=== PATIENT | female | born 1990 | race Caucasian/White ===

== ENCOUNTER 2018-11-10 13:31 | Emergency (ER) | payer OTHER, MEDICAID, SELFPAY ==
[2018-11-10 13:37] VITALS: BP 131/85; PULSE 66; RESP 20; TEMP 36.6; O2SAT 99
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
--- NOTE | 2018-11-10 15:14 | PC.NURSE ---
CMS intact after collar placed. CT done. Stable pt
[2018-11-10] MEDS: KETOROLAC 60 MG/2 ML VIAL IM (15:38)
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
[2018-11-10 16:12] VITALS: BP 116/74; PULSE 57; RESP 20; O2SAT 96
== END 2018-11-10 16:13 | disposition home or self-care (01) ==
PROVIDERS: Emergency Provider Nurse Practitioner Family
DX: M54.2 Cervicalgia (principal); S13.4XXA Sprain of ligaments of cervical spine, initial encounter; V89.2XXA Person injured in unspecified motor-vehicle accident, traffic, initial encounter
CPT/HCPCS: 72125; 81003; 81025; 99282; 99284; J1885

== ENCOUNTER → 2019-09-29 16:00 | Outpatient (CLI) | payer OTHER, MEDICAID, SELFPAY ==
--- NOTE | 2019-09-29 16:03 | DI.RAD.S_ITS ---
PROCEDURE: XR LUMBAR SPINE 2-3V INDICATIONS: Low back pain TECHNIQUE: 3 views of the lumbar spine were acquired. COMPARISON: None. FINDINGS: Bones: No fracture or focal osseous destruction. Multilevel degenerative endplate sclerosis and spurring. Diffuse facet arthropathy. Diffuse mild lumbar disc space narrowing Soft tissues: Overlying bowel gas pattern is normal. No suspicious soft tissue calcifications. IMPRESSION: Mild diffuse lumbar spondylosis and facet arthropathy Dictated by: Gary Vail M.D. on 09/29/2019 at 16:58 Approved by: Gary Vail M.D. on 09/29/2019 at 16:59
== END ==
PROVIDERS: PCP Student in an Organized Health Care Education/Training Program; Referring Provider Student in an Organized Health Care Education/Training Program; Visit Provider Student in an Organized Health Care Education/Training Program
DX: M54.5 Low back pain (principal); M47.816 Spondylosis without myelopathy or radiculopathy, lumbar region
CPT/HCPCS: 72100

== ENCOUNTER 2019-10-08 16:30 | Emergency (ER) | payer OTHER, MEDICAID, SELFPAY ==
[2019-10-08 16:39] VITALS: BP 125/68; PULSE 66; RESP 18; TEMP 36.7; O2SAT 100; BMI 32.2
[2019-10-08 17:55] LABS: Prothrombin Time 11.2 SECONDS (10.1-12.7)
[2019-10-08 17:58] LABS: PTT Partial Thromboplastin Tim 30 SECONDS (26.4-36.2)
[2019-10-08 18:00] LABS: Alanine Aminotransferase 22 IU/L (<35); Albumin 4.6 g/dL (3.5-5.0); Albumin Globulin Ratio 1.3 (1.0-2.8); Alkaline Phosphatase 114 U/L (38-126); Aspartate Aminotransferase 31 IU/L (14-36); Bilirubin Total 0.4 mg/dL (0.2-1.3); Blood Urea Nitrogen 9 mg/dL (7-17); Calcium 9.8 mg/dL (8.4-10.2); Carbon Dioxide 23 mmol/L (22-32); Chloride 105 mmol/L (98-107); Estimated Glomerular Filt Rate > 60.0 mL/min (>60); Globulin 3.6 g/dL (1.7-4.1); Glucose 88 mg/dL (70-100); HEMOLYSIS < 15 (0-50); Lipase 179 U/L (23-300); Potassium 4.1 mmol/L (3.4-5.1); Sodium 139 mmol/L (137-145); Total Protein 8.2 g/dL (6.3-8.2)
[2019-10-08 18:02] LABS: Add Manual Diff / Slide Review NO; Basophils Absolute Auto 0 /uL (0-100); Basophils Percent Auto 0.2 % (0-2); Eosinophils Absolute Auto 100 /uL (0-450); Eosinophils Percent Auto 0.9 % (2-4); Hematocrit 40.6 % (36-46); Hemoglobin 13.9 g/dL (12.0-16.0); Lymphocytes Absolute Auto 2800 /uL (1100-4500); Lymphocytes Percent Auto 31.3 % (25-40); Mean Corpuscular HGB Conc 34.2 % (30-36); Mean Corpuscular Hemoglobin 30.4 PG (26-34); Mean Corpuscular Volume 88.8 fL (80-100); Monocytes Absolute Auto 800 /uL (0-900); Monocytes Percent Auto 9.1 % (3-14); Neutrophils Absolute Auto 5100 /uL (1500-7000); Neutrophils Percent Auto 58.5 % (50-75); Platelet Count 270 X10^3/uL (150-400); Red Blood Cell Count 4.57 X10^6/uL (4.0-5.2); Red Cell Distribution Width 13.3 % (11.6-14.8); White Blood Cell Count 8.8 X10^3/uL (4.5-11.0)
--- NOTE | 2019-10-08 18:15 | ED_ITS ---
HPI - Abdominal Pain General Chief Complaint: Abdominal Pain Stated Complaint: abdominal cramping and pain past week Time Seen by Provider: 10/08/19 18:00 Source: patient Mode of arrival: Ambulatory Limitations: no limitations History of Present Illness HPI narrative: 29-year-old female nonsmoker with noncontributory medical history presents with her mother and a chief complaint of approximately 1 week of abdominal discomfort. She has had crampy, nonspecific, generalized abdominal pain that is hands to worsen without provocation. Patient has had decreased bowel movements but is still passing gas. She has had no fever chills. She has no nausea or vomiting. She denies dysuria, frequency or urgency. She denies vaginal bleeding or discharge MD complaint: abdominal pain Onset (ago): day(s) Pain Consistency: intermittent Location: diffuse Severity: moderate Quality: cramping Radiation: none Relieving factors: nothing Exacerbating factors: nothing Associated symptoms: constipation Related Data Previous Rx's Medication Instructions Recorded alprazolam 0.25 mg tablet 0.25 mg PO DAILY PRN #10 tab 09/30/19 cyclobenzaprine 10 mg tablet 10 mg PO BID PRN #60 tab 09/30/19 gabapentin 300 mg capsule 300 mg PO BEDTIME PRN #30 cap 09/30/19 valacyclovir 1 gram tablet 2,000 mg PO BID #4 tab 09/30/19 Allergies Allergy/AdvReac Type Severity Reaction Status Date / Time amoxicillin Allergy Mild HIVES, Verified 10/08/19 16:48 NAUSEA Review of Systems Constitutional Constitutional: Denies chills, Denies fatigue, Denies fever(s), Denies frequent falls, Denies lethargy and Denies weakness Eyes Eyes: Denies change in vision, Denies eye discharge, Denies irritation and Denies loss of vision ENT Ears, Nose, Mouth, and Throat: Denies change in voice, Denies dizziness, Denies neck pain, Denies sore throat and Denies throat swelling Cardiovascular Cardiovascular: Denies chest pain, Denies irregular heart rhythm, Denies lightheadedness, Denies palpitations, Denies dyspnea, Denies dyspnea on exertion and Denies orthopnea Respiratory Respiratory: Denies cough, Denies dyspnea, Denies dyspnea on exertion and Denies wheezing Gastrointestinal Gastrointestinal: Reports abdominal pain, Denies change in bowel habits, Reports constipation, Reports cramping, Denies diarrhea, Denies nausea and Denies vomiting Genitourinary Genitourinary: Denies hematuria, Denies flank pain, Denies urinary incontinence and Denies urinary urgency Musculoskeletal Musculoskeletal: Denies back pain, Denies muscle weakness, Denies neck pain, Denies numbness and Denies tingling Integumentary/Breasts Skin/Breast: Denies pruritus, Denies erythema, Denies rash and Denies wounds Neurologic Neurologic: Denies behavioral changes, Denies confusion, Denies dizziness, Denies frequent falls, Denies loss of vision, Denies numbness, Denies tingling and Denies weakness Psychiatric Psychiatric: Denies anxiety, Denies behavioral changes, Denies confusion, Denies depression, Denies homicidal ideation and Denies suicidal ideation Endocrine Endocrine: Denies fatigue, Denies flushing and Denies palpitations Hematologic/Lymphatic Hematologic/Lymphatic: Denies easy bruising Allergic/Immunologic Allergic/Immunologic: Denies urticaria, Denies throat swelling and Denies wheezing Patient History Medical History Acne (Chronic ~2005) ADHD (Chronic) Asthma (Chronic ~2005) Contact dermatitis (Inactive) Depression (Chronic) Foot pain (Chronic ~05/2016) Hearing loss (Chronic) Shoulder pain (Chronic ~2018) Family History Grandfather Age: 86 Essential hypertension Grandfather Essential hypertension High cholesterol Cancer Grandmother Age: 88 Diabetes mellitus Essential hypertension Social History Smoking Status: Former smoker Smoking Status: Former smoker tobacco type: cigarettes alcohol intake frequency: holidays/special occasions only Substance Use Type: marijuana Exam Narrative Exam Narrative: GENERAL: [29] year old patient appears stated age. Well- nourished, well-developed patient, in no obvious distress. Sitting upright in her hospital bed with her mother and taking selfies with phone. HEAD: Atraumatic. Normocephalic. EYES: Pupils equal round and reactive. Extraocular motions intact. No scleral icterus. No injection or drainage. ENT: Nose without bleeding, purulent drainage. Throat without erythema, tonsillar hypertrophy or exudate. Airway patent. NECK: Trachea midline. Non tender CARDIOVASCULAR: Regular rate and rhythm without murmurs, gallops, or rubs. RESPIRATORY: Clear to auscultation. Breath sounds equal bilaterally. No wheezes, rales, or rhonchi. GASTROINTESTINAL: Abdomen soft, non-tender, nondistended. Decreased bowel sounds EXTREMITIES: No edema or joint tenderness. BACK: Nontender without deformity or crepitance. No flank tenderness. NEURO: AOx3. SKIN: No rash or erythema of visible areas Initial Vital Signs Initial Vital Signs: Vital Signs Temperature 98.0 F 10/08/19 16:39 Pulse Rate 66 10/08/19 16:39 Respiratory Rate 18 10/08/19 16:39 Blood Pressure 125/68 10/08/19 16:39 Pulse Oximetry 100 10/08/19 16:39 Course Orders Ordered: ED Orders 10/08/19 16:50 EKG-12 Lead Stat 10/08/19 17:38 Complete Blood Count AUTO DIFF Stat Comprehensive Metabolic Panel Stat Lipase Stat Partial Thromboplastin Time Stat Prothrombin Time INR Stat Vital Signs Vital signs: Vital Signs - 8 hr 10/08/19 16:39 Temperature 98.0 F Pulse Rate 66 Respiratory Rate 18 Blood Pressure 125/68 Pulse Oximetry 100 MDM - Abdominal Pain Lab Data Result diagrams: 10/08/19 17:38 10/08/19 17:38 Labs: Lab Results 10/08/19 10/08/19 10/08/19 Range/Units 17:38 17:38 17:38 WBC 8.8 (4.5-11.0) X10^3/uL RBC 4.57 (4.0-5.2) X10^6/uL Hgb 13.9 (12.0-16.0) g/dL Hct 40.6 (36-46) % MCV 88.8 (80-100) fL MCH 30.4 (26-34) PG MCHC 34.2 (30-36) % RDW 13.3 (11.6-14.8) % Plt Count 270 (150-400) X10^3/uL Neut % (Auto) 58.5 (50-75) % Lymph % (Auto) 31.3 (25-40) % [place] % (Auto) 9.1 (3-14) % Eos % (Auto) 0.9 L (2-4) % Baso % (Auto) 0.2 (0-2) % Neut # (Auto) 5100 (6873-2134) /uL Lymph # (Auto) 2800 (6347-9183) /uL [place] # (Auto) 800 (0-900) /uL Eos # (Auto) 100 (0-450) /uL Baso # (Auto) 0 (0-100) /uL PT 11.2 (10.1-12.7) SECONDS INR 1.0 (0.9-1.3) APTT 30 (26.4-36.2) SECONDS Sodium 139 (137-145) mmol/L Potassium 4.1 (3.4-5.1) mmol/L Chloride 105 (98-107) mmol/L Carbon Dioxide 23 (22-32) mmol/L BUN 9 (7-17) mg/dL Creatinine 0.60 (0.52-1.04) mg/dL Estimated GFR > 60.0 (>60) mL/min BUN/Creatinine Ratio 15.0 (6-22) Glucose 88 (70-100) mg/dL Calcium 9.8 (8.4-10.2) mg/dL Total Bilirubin 0.4 (0.2-1.3) mg/dL AST 31 (14-36) IU/L ALT 22 (<35) IU/L Alkaline Phosphatase 114 (38-126) U/L Total Protein 8.2 (6.3-8.2) g/dL Albumin 4.6 (3.5-5.0) g/dL Globulin 3.6 (1.7-4.1) g/dL Albumin/Globulin Ratio 1.3 (1.0-2.8) Lipase 179 (23-300) U/L Imaging Data Abdominal x-ray: Radiologist's Impression: Chart Viewer Diagnostics DATE TYPE STATUS AUTHOR Hx 10/08/19 18:26 Daniel Villagran 09/29/19 16:03 Gary Vail 11/10/18 13:49 Danica Tsai Danene C 29, F0 1990 [facility] 172.72cm 96.162kg BMI: 32.2kg/m? Abdominal Pain Search Chart No Data to Display HIVES, NAUSEA ONSET 04/15/16 07/07/16 10/08/19 19:30 Becki Sunshine 29 F [address] [address] XRay Report Signed Patient: Becki Sunshine CMR#: [id number] : 1990Acct:[id number] Age/Sex: 29 / FDate of Service: 10/08/19 Loc: ED Accession Number: [id number] Procedure: XR abdomen min 2V Ordering Provider: Dago Roberts D.O. PROCEDURE: XR ABDOMEN MIN 2V INDICATIONS: abdominal pain cramping TECHNIQUE: 2 views of the abdomen were acquired. COMPARISON: None. FINDINGS: Surgical changes and devices: None. Bowel: No pneumoperitoneum. The bowel gas pattern is normal. Soft tissues: No masses; visualized solid organ contours appear normal in size. No suspicious abdominal calcifications. Bones: No suspicious bony abnormalities. IMPRESSION: Unremarkable abdominal films. Dictated by: Daniel Villagran M.D. on 10/08/2019 at 18:55 Approved by: Daniel Villagran M.D. on 10/08/2019 at 18:55 [facility] Narrative Medical decision making narrative: Multiple etiologies for patient's symptoms considered including: [Bowel obstruction versus appendicitis, thought less likely given lack of fever or elevated white blood cell count as well as colicky nature pain) versus ovarian trouble versus other] Patient's symptoms improved or duration of stay with above-stated therapies. Findings and discharge diagnosis discussed with patient/family followed by verbalization of understanding Return precautions discussed with patient/family whom verbalize understanding. Discharge Plan Departure Patient Disposition: Home Clinical Impression: Abdominal pain Qualifiers: Abdominal location: lower abdomen, unspecified Qualified Code(s): R10.30 - Lower abdominal pain, unspecified Constipation Qualifiers: Constipation type: unspecified constipation type Qualified Code(s): K59.00 - Constipation, unspecified Discharge Date/Time: 10/08/19 19:31 Instructions: DI for Abdominal Pain-Adult Activity Restrictions/Additional Instructions: *You have been diagnosed with [ abdominal pain due to constipation ] *What to do: *Take over the counter medications as directed: 1. Metamucil - is a bulk forming laxative and adds fiber 2. Colace - softens your stool 3. Dulcolax suppository - stimulates your bowels *Follow up with your primary care provider in 2-3 days, call for appointment *Return to ER if you should have any new, worsening or concerning symptoms such as worsening or more persistent pain, fever over 101 or other bothersome symptoms *Drink plenty of water and eat foods high in fiber *Stay as active as you can as this helps move your bowels as well Prescriptions: No Action gabapentin 300 mg capsule 300 mg PO BEDTIME PRN (Reason: Sciatica) Qty: 30 RF: 0 cyclobenzaprine 10 mg tablet 10 mg PO BID PRN (Reason: muscle spasm) Qty: 60 RF: 5 alprazolam 0.25 mg tablet 0.25 mg PO DAILY PRN (Reason: panic attack(s)) Qty: 10 RF: 5 valacyclovir 1 gram tablet 2,000 mg PO BID Qty: 4 RF: 11 Referrals: Alex Carson MD [Primary Care Provider] -
--- NOTE | 2019-10-08 18:26 | DI.RAD.S_ITS ---
PROCEDURE: XR ABDOMEN MIN 2V INDICATIONS: abdominal pain cramping TECHNIQUE: 2 views of the abdomen were acquired. COMPARISON: None. FINDINGS: Surgical changes and devices: None. Bowel: No pneumoperitoneum. The bowel gas pattern is normal. Soft tissues: No masses; visualized solid organ contours appear normal in size. No suspicious abdominal calcifications. Bones: No suspicious bony abnormalities. IMPRESSION: Unremarkable abdominal films. Dictated by: Daniel Villagran M.D. on 10/08/2019 at 18:55 Approved by: Daniel Villagran M.D. on 10/08/2019 at 18:55
[2019-10-08 19:30] VITALS: BP 121/68; PULSE 85; RESP 18; TEMP 37.3; O2SAT 100
== END 2019-10-08 19:31 | disposition home or self-care (01) ==
PROVIDERS: Emergency Medicine; Emergency Provider Emergency Medicine; PCP Student in an Organized Health Care Education/Training Program
DX: R10.30 Lower abdominal pain, unspecified (principal); K59.00 Constipation, unspecified
CPT/HCPCS: 36415; 74019; 80053; 83690; 85025; 85610; 85730; 93005; 99281; 99285

== ENCOUNTER → 2020-08-21 14:44 | Outpatient (CLI) | payer OTHER, MEDICAID, SELFPAY ==
--- NOTE | 2020-08-21 14:45 | DI.CT.S_ITS ---
PROCEDURE: CT LUMBAR SPINE WO CON INDICATIONS: Back pain with radicular sx; MRI contraindicated TECHNIQUE: Noncontrast 3 mm thick sections acquired from the T12 level to the sacrum. Sagittal and coronal reformats were constructed. For radiation dose reduction, the following was used: automated exposure control. COMPARISON: None. FINDINGS: Image quality: Excellent. Bones: Normal lumbar vertebral body height and alignment. No pars defect. No suspicious lytic or blastic osseous lesion. Mild mild multilevel disc height loss with Schmorl nodes and degenerative endplate changes, most notable left L1-L2 and L4-L5. No significant facet degeneration. T12-L1: No spinal canal or neural foraminal stenosis. L1-L2: Disc bulge flattens the ventral thecal sac. No neural foraminal stenosis. L2-L3: Disc bulge and a superimposed protrusion flatten and indent the ventral thecal sac. There may be mass effect upon the traversing L3 nerve roots. Mild bilateral neural foraminal narrowing secondary to foraminal components of the disc. L3-L4: Disc bulge and a superimposed broad-based posterior disc protrusion flatten and indent the ventral thecal sac, most notable in the left subarticular zone. There may be mass effect upon the L4 nerve roots. Foraminal components of the disc bulge are present, producing mild bilateral neural foraminal stenosis. L4-L5: Diffuse disc bulge and a superimposed broad-based posterior disc protrusion flatten and indent the ventral thecal sac. Possible mass effect upon the L5 nerve roots. Foraminal components of the disc bulge contribute to mild bilateral neural foraminal stenosis. L5-S1: Diffuse disc bulge flattens the ventral thecal sac. Disc material abuts the descending left S1 nerve root and may abut the descending right S1 nerve root. No neural foraminal stenosis. Soft tissues: No retroperitoneal masses or hematomas. Visualized aorta is normal in caliber. IMPRESSION: Mild multilevel degenerative changes as described above. Potential for focal nerve root impingement, which could be better assessed with CT myelogram if there are radicular symptoms. Dictated by: Timmy Puga M.D. on 08/21/2020 at 17:59 Approved by: Timmy Puga M.D. on 08/21/2020 at 18:02
== END ==
PROVIDERS: PCP Student in an Organized Health Care Education/Training Program; Referring Provider Student in an Organized Health Care Education/Training Program; Visit Provider Student in an Organized Health Care Education/Training Program
DX: M54.40 Lumbago with sciatica, unspecified side (principal); M47.816 Spondylosis without myelopathy or radiculopathy, lumbar region
CPT/HCPCS: 72131